=== PATIENT | male | born 1960 | race Hispanic/Latino ===

== ENCOUNTER 2016-08-22 11:53 | Emergency (ER) | payer MEDICAID ==
[2016-08-22 13:08] VITALS: BMI 44.7
[2016-08-22 13:13] VITALS: TEMP 98.1
[2016-08-22 15:17] VITALS: BP 118/77; PULSE 72; RESP 18; O2SAT 98
--- NOTE | 2016-08-22 15:54 | ED PDOC ---
Arrival/HPI - General Chief Complaint: Finger,Hand,&Wrist Time Seen by Provider: 08/22/16 13:42 Historian: Patient - History of Present Illness Narrative History of Present Illness (Text): 08/22/16 13:42 A 55 year old male who presents to the emergency department complaining of right hand pain for the past 3 days. Patient states he is not sure if he injured the hand. Patient is right handed. He denies any left hand pain, or any other complaints at this time. PMD: Dr. Wood Time/Duration: Other (3 days) Symptom Onset: Sudden Symptom Course: Unchanged Quality: Other Activities at Onset: Rest Context: Home Past Medical History - Provider Review Nursing Documentation Reviewed: Yes - Cardiac Hx Hypertension: Yes - Endocrine/Metabolic Hx Diabetes Mellitus Type 2: Yes (July 2016 dx) - Gastrointestinal Hx Gastroesophageal Reflux: Yes - Psychiatric Hx Psychophysiologic Disorder: No Hx Substance Use: No - Surgical History Hx Joint Replacement: Yes (bilat knee replacement) Family/Social History - Physician Review Nursing Documentation Reviewed: Yes Family/Social History: No Known Family HX Smoking Status: Unknown If Ever Smoked Hx Alcohol Use: No Hx Substance Use: No Allergies/Home Meds Allergies/Adverse Reactions: Allergies No Known Allergies Allergy (Verified 08/22/16 13:08) Review of Systems - Physician Review All systems were reviewed & negative as marked: Yes - Review of Systems Constitutional: Normal Eyes: Normal ENT: Normal Respiratory: Normal Cardiovascular: Normal Gastrointestinal: Normal Genitourinary Male: Normal Musculoskeletal: Other (right hand pain) Skin: Normal Neurological: Normal Endocrine: Normal Hemo/Lymphatic: Normal Psychiatric: Normal Physical Exam Vital Signs Reviewed: Yes Vital Signs Temp Pulse Resp BP Pulse Ox 08/22/16 15:15 72 18 118/77 98 08/22/16 13:12 98.1 F 78 17 122/80 97 Temperature: Afebrile Blood Pressure: Normal Pulse: Regular Respiratory Rate: Normal Appearance: Positive for: Well-Appearing, Non-Toxic, Comfortable Pain Distress: None Mental Status: Positive for: Alert and Oriented X 3 - Systems Exam Head: Present: Atraumatic, Normocephalic Conjunctiva: Present: Normal Mouth: Present: Moist Mucous Membranes Neck: Present: Normal Range of Motion Upper Extremity: Present: Tenderness (point tenderness with palpation of the right hand proximal end of the third digit). No: Cyanosis, Edema Lower Extremity: Present: Normal Inspection Neurological: Present: GCS=15, CN II-XII Intact, Speech Normal Skin: Present: Warm, Dry, Normal Color. No: Rashes Psychiatric: Present: Alert, Oriented x 3, Normal Insight, Normal Concentration Medical Decision Making ED Course and Treatment: 08/22/16 13:42 Impression: A 55 year old male with right hand pain. Differential Diagnosis include but are not limited to: fracture vs. musculoskeletal Plan: -- Right hand X-ray -- Motrin -- Reassess and disposition Progress Notes: 08/22/16 14:40 Right hand x-ray shows no acute fracture. On re-evaluation, the patient feels better and is in no acute distress. I have discussed the results and plan with the patient, who expresses understanding. Patient in agreement with plan to discharged home. Patient is stable for discharge. Patient was instructed to follow up with physician/clinic in 1-2 days or return if symptoms worsen or new concerning symptoms arise. - RAD Interpretation Radiology Orders: 08/22/16 13:42 HAND RIGHT 3 VIEWS [RAD] Stat - Medication Orders Current Medication Orders: Discontinued Medications Ibuprofen (Motrin Tab) 600 mg PO STAT STA Stop: 08/22/16 13:47 Last Admin: 08/22/16 14:08 Dose: 600 MG MAR Pain/Vitals Document 08/22/16 14:08 [facility] (Rec: 08/22/16 14:08 [id number] Pain Reassessment Is This A Pain ReAssessment? No - Scribe Statement The provider has reviewed the documentation as recorded by the Jus Santizo Provider Scribe Attestation: All medical record entries made by the Scribe were at my direction and personally dictated by me. I have reviewed the chart and agree that the record accurately reflects my personal performance of the history, physical exam, medical decision making, and the department course for this patient. I have also personally directed, reviewed, and agree with the discharge instructions and disposition. Disposition/Present on Arrival - Present on Arrival Any Indicators Present on Arrival: No History of DVT/PE: No History of Uncontrolled Diabetes: No Urinary Catheter: No History of Decub. Ulcer: No History Surgical Site Infection Following: None - Disposition Have Diagnosis and Disposition been Completed?: Yes Diagnosis: Hand contusion Disposition: HOME/ ROUTINE Disposition Time: 14:40 Condition: GOOD Discharge Instructions (ExitCare): Hand Sprain (ED) Additional Instructions: Thank you for letting us take care of you today. Your provider was Dr. Kenyon. You were treated for hand contusion. The emergency medical care you received today was directed at your acute symptoms. If you were prescribed any medication, please fill it and take as directed. It may take several days for your symptoms to resolve. Return to the Emergency Department if your symptoms worsen, do not improve, or if you have any other problems. Please contact your doctor or call one of the physicians/clinics you have been referred to that are listed on the Patient Visit Information form that is included in your discharge packet. Bring any paperwork you were given at discharge with you along with any medications you are taking to your follow up visit. Our treatment cannot replace ongoing medical care by a primary care provider (PCP) outside of the emergency department. Thank you for allowing the [facility] team to be part of your care today. Follow up with your doctor in 2-3 days for re-evaluation. Prescriptions: Ibuprofen [Motrin] 600 mg PO Q6 PRN #20 tab PRN Reason: Pain, Moderate (4-7) Referrals: Jorge Wood MD [Primary Care Provider] - Follow up with primary
--- NOTE | 2016-08-22 16:00 | RAD ---
PROCEDURE: Right Hand Radiographs. HISTORY: r/o fx (3rd digit) COMPARISON: None. FINDINGS: BONES: Normal. No fracture. JOINTS: Normal. No osteoarthritic changes. SOFT TISSUES: Normal. OTHER FINDINGS: None. IMPRESSION: Normal right hand radiographs.
== END 2016-08-22 15:16 | disposition home or self-care (01) ==
LOC: ED 11:53
DX: S60.221A Contusion of right hand, initial encounter (principal); X58.XXXA Exposure to other specified factors, initial encounter; I10 Essential (primary) hypertension; E11.9 Type 2 diabetes mellitus without complications

== ENCOUNTER 2017-12-27 14:25 | Emergency (ER) | payer MEDICAID, OTHER ==
[2017-12-27 14:45] VITALS: BMI 39.1
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
[2017-12-27 16:47] VITALS: RESP 18; TEMP 98.2
[2017-12-27 17:06] VITALS: BP 149/73
[2017-12-27 17:08] VITALS: PULSE 71; O2SAT 97
== END 2017-12-27 16:00 | disposition home or self-care (01) ==
LOC: ED 14:25
DX: R51 Headache (principal); M79.671 Pain in right foot; V43.52XA Car driver injured in collision with other type car in traffic accident, initial encounter; I10 Essential (primary) hypertension; E11.9 Type 2 diabetes mellitus without complications

== ENCOUNTER 2018-01-07 11:22 | Inpatient (IN) | payer MEDICARE, OTHER ==
[2018-01-07 11:23] VITALS: BMI 39.1
[2018-01-07] MEDS ORDERED: Albuterol-Ipratrop 3 mg / 0.5 (3 ml) UD IH STA (11:32)
--- NOTE | 2018-01-07 11:35 | ED PDOC ---
Arrival/HPI - Critical Care Critical Care Minutes: 30 minutes <Zheng Britt - Last Filed: 01/07/18 13:01> - General Historian: Patient EM Caveat: Respiratory Distress - Critical Care Critical Care Minutes: 30 minutes - History of Present Illness Time/Duration: Other (approx 12 hours) Symptom Onset: Gradual Symptom Course: Worsening Quality: Tightness <Declan Dash - Last Filed: 01/07/18 13:20> - General Chief Complaint: Respiratory Distress Time Seen by Provider: 01/07/18 11:24 - History of Present Illness Narrative History of Present Illness (Text): 01/07/18 11:55 Patient is a 57 yo male with PMH of hypertension, sleep apnea and COPD presenting by ACLS in acute respiratory distress. Patient sitting up, using accessory muscles to breath with oxygen on. He is talking in short broken sentences upon arrival. Patient re-interviewed after some treatments. 01/07/18 12:30 Patient is now able to speak and feels he is breathing much better. He states his breathing started to worsen last night. While he was showering this morning , he started to get very anxious and nervous because he felt his breathing worsening. His chest felt very tight and he was not able to get air in or out. He attempted using an albuterol inhaler with no relief. His got nervous and decided to call 911. He has no other complaints at this time. Denies fevers , chills, nausea, vomiting, diarrhea, constipation, chest pain, palpitations, abdominal pain, numbness or tingling. He is still an active smoker - smoking 1 and a half packs per day. Denies alcohol and illicit drug use. (Declan Dash) Past Medical History - Provider Review Nursing Documentation Reviewed: Yes - Infectious Disease Hx of Infectious Diseases: None - Cardiac Hx Hypertension: Yes - Endocrine/Metabolic Hx Diabetes Mellitus Type 2: Yes (July 2016 dx) - Gastrointestinal Hx Gastroesophageal Reflux: Yes - Psychiatric Hx Psychophysiologic Disorder: No Hx Substance Use: No - Surgical History Hx Joint Replacement: Yes (bilat knee replacement) - Anesthesia Hx Anesthesia Reactions: No <Declan Dash - Last Filed: 01/07/18 13:20> Family/Social History - Physician Review Nursing Documentation Reviewed: Yes Family/Social History: Unknown Family HX Smoking Status: Heavy Smoker > 10 Cigarettes Daily Hx Alcohol Use: No Hx Substance Use: No <Declan Dash - Last Filed: 01/07/18 13:20> Allergies/Home Meds <Zheng Britt - Last Filed: 01/07/18 13:01> <Declan Dash - Last Filed: 01/07/18 13:20> Allergies/Adverse Reactions: Allergies No Known Allergies Allergy (Verified 08/22/16 13:08) Review of Systems - Physician Review All systems were reviewed & negative as marked: Yes - Review of Systems Constitutional: Normal. absent: Fatigue, Fevers Eyes: Normal. absent: Vision Changes ENT: Normal Respiratory: SOB, Wheezing. absent: Cough, Sputum Cardiovascular: Normal. absent: Chest Pain, Palpitations, Calf Pain Gastrointestinal: Normal. absent: Abdominal Pain, Constipation, Diarrhea, Nausea, Vomiting, Appetite Changes Musculoskeletal: Normal Skin: Normal Neurological: Normal Endocrine: Diaphoresis Hemo/Lymphatic: Normal Psychiatric: Normal <Declan Dash - Last Filed: 01/07/18 13:20> Physical Exam Vital Signs Reviewed: Yes Temperature: Afebrile Blood Pressure: Hypertensive Pulse: Tachycardic Respiratory Rate: Other (respiratory distress - placed on bipap) Appearance: Positive for: Ill-Appearing Pain Distress: None Mental Status: Positive for: Alert and Oriented X 3 - Systems Exam Head: Present: Atraumatic, Normocephalic Extroacular Muscles: Present: EOMI Conjunctiva: Present: Normal Neck: Present: Normal Range of Motion Respiratory/Chest: Present: Respiratory Distress, Accessory Muscle Use, Wheezes , Retracting, Rhonchi, Tachypneic. No: Clear to Auscultation, Good Air Exchange , Decreased Breath Sounds, Rales, Tender to Palpation Cardiovascular: Present: Regular Rate and Rhythm, Normal S1, S2. No: Murmurs Abdomen: No: Tenderness, Distention, Peritoneal Signs, Rebound, Guarding Upper Extremity: Present: Normal Inspection. No: Cyanosis, Edema Lower Extremity: Present: Edema (2+), NORMAL PULSES. No: CALF TENDERNESS Neurological: Present: GCS=15, CN II-XII Intact, Speech Normal Skin: Present: Warm, Dry, Normal Color. No: Rashes Psychiatric: Present: Alert, Oriented x 3, Normal Insight, Normal Concentration <Declan Dash - Last Filed: 01/07/18 13:20> Vital Signs Temp Pulse Resp BP Pulse Ox 01/07/18 11:30 98.4 F 105 H 21 182/81 H 97 Medical Decision Making <BalwinderZheng - Last Filed: 01/07/18 13:01> Re-evaluation Time: 12:37 Reassessment Condition: Re-examined, Improving,but remains with symptoms - Lab Interpretations I have reviewed the lab results: Yes - RAD Interpretation Curing Machine Operator: ED Physician - EKG Interpretation Interpreted by ED Physician: Yes Type: 12 lead EKG Comparison: No previous EKG avail. <Declan Dash - Last Filed: 01/07/18 13:20> ED Course and Treatment: 01/07/18 13:00 Seen and examined with the resident. Our history and physical exam reveals a morbidly obese gentleman with severe respiratory distress using accessory muscles with retractions tachypneic and tachycardic and wheezing throughout. BiPAP was begun on arrival. He is markedly improved after BiPAP and multiple breathing treatments. (Zheng Britt) Patient is in respiratory distress. Talking in short, broken sentences. * labs * cxr * ekg * solumedrol * duonebs * BIPAP 01/07/18 12:38 Patient is greatly improved, talking in full sentences. Currently still on BiPAP. Still wheezing on exam. CXR is normal. Labs unremarkable. Patient agreeable to hospitalization. He is a patient of Dr. Luu. Call placed to Dr. Luu, awaiting return call. 01/07/18 13:[address] Luu. He is requesting patient to be placed on his service for full admission on telemetry. (Declan Dash) - Lab Interpretations Lab Results: 01/07/18 11:38 01/07/18 11:38 Lab Results 01/07/18 11:38: Sodium 143, Chloride 102, Potassium 4.6, Carbon Dioxide 28, Anion Gap 17, BUN 14, Creatinine 0.7 L, Est GFR ( Amer) > 60, Est GFR ( Non-Af Amer) > 60, Random Glucose 171 H, Calcium 9.7, Phosphorus 4.6 H, Magnesium 1.7, Total Bilirubin 0.4, AST 81 H, ALT 129 H, Alkaline Phosphatase 111, Troponin I 0.02, Total Protein 8.1, Albumin 4.6, Globulin 3.5, Albumin/ Globulin Ratio 1.3 01/07/18 11:38: WBC 9.2, RBC 5.05, Hgb 15.7, Hct 45.6, MCV 90.3, MCH 31.1, MCHC 34.4, RDW 13.4, Plt Count 210, MPV 10.3, Gran % 65.9, Lymph % (Auto) 19.2 L, [place] % (Auto) 5.5, Eos % (Auto) 8.9 H, Baso % (Auto) 0.5, Gran # 6.08, Lymph # ( Auto) 1.8, [place] # (Auto) 0.5, Eos # (Auto) 0.8 H, Baso # (Auto) 0.05 01/07/18 11:35: pCO2 55 H, pO2 159.0 H, HCO3 28.3 H, ABG pH 7.32 L, ABG Total CO2 30.0 H, ABG O2 Saturation 98.3 H, ABG Base Excess 1.1, ABG Potassium 3.8, Sodium 141.0, Chloride 105.0, Glucose 162 H, Lactate 1.0, FiO2 40.0, Inspiratory BiPAP 12, Arterial Blood Potassium 3.8 - RAD Interpretation Narrative RAD Interpretations (Text): 01/07/18 13:19 CXR - no acute disease (Declan Dash) Radiology Orders: 01/07/18 11:31 CHEST PORTABLE [RAD] Stat - EKG Interpretation EKG Interpretation (Text): 01/07/18 12:41 Sinus Tachycardia @116bpm, LBBB, No acute ST segment elevations - no previous ekg for comparison. (Declan Dash) - Medication Orders Current Medication Orders: Discontinued Medications Albuterol Sulfate (Albuterol 0.083% Inhal Tamar (2.5 Mg/3 Ml) Ud) 2.5 mg INH STAT STA Stop: 01/07/18 12:30 Last Admin: 01/07/18 13:03 Dose: 2.5 mg Albuterol Sulfate (Albuterol 0.083% Inhal Tamar (2.5 Mg/3 Ml) Ud) 2.5 mg INH STAT STA Stop: 01/07/18 12:30 Last Admin: 01/07/18 13:03 Dose: 2.5 mg Albuterol Sulfate (Albuterol 0.083% Inhal Tamar (2.5 Mg/3 Ml) Ud) 2.5 mg INH STAT STA Stop: 01/07/18 12:30 Last Admin: 01/07/18 13:03 Dose: 2.5 mg Albuterol/Ipratropium (Duoneb 3 Mg/0.5 Mg (3 Ml) Ud) 3 ml IH STAT STA Stop: 01/07/18 11:33 Last Admin: 01/07/18 11:42 Dose: 3 ml Magnesium 2 gm/50 ml NS (Magnesium Sulfate 2 Gm/50 Ml Ns) 2 gm in 50 mls @ 50 mls/hr IVPB ONCE ONE Stop: 01/07/18 12:37 Last Admin: 01/07/18 12:12 Dose: 50 mls/hr eMAR Start Stop Document 01/07/18 12:12 EWO (Rec: 01/07/18 12:12 [id number] [id number]) Intravenous Solution Start Date 01/07/18 Start Time 12:12 End Date 01/07/18 End time 13:12 Total Infusion Time 60 Methylprednisolone (Solu-Medrol) 200 mg IVP STAT STA Stop: 01/07/18 11:33 Last Admin: 01/07/18 11:41 Dose: 200 mg IVP Administration Document 01/07/18 11:41 EWO (Rec: 01/07/18 11:41 [email or web address] [id number]) Charges for Administration # of IVP Administrations 1 Disposition/Present on Arrival <Zheng Britt - Last Filed: 01/07/18 13:01> - Present on Arrival Any Indicators Present on Arrival: No History of DVT/PE: No History of Uncontrolled Diabetes: No Urinary Catheter: No History of Decub. Ulcer: No History Surgical Site Infection Following: None - Disposition Have Diagnosis and Disposition been Completed?: Yes Disposition Time: 12:37 Patient Plan: Telemetry <Declan Dash - Last Filed: 01/07/18 13:20> - Disposition Diagnosis: COPD exacerbation Disposition: HOSPITALIZED Patient Problems: Current Active Problems Problem Status Onset COPD exacerbation Acute Condition: GUARDED Forms: [employer] ([place] Islander)
[2018-01-07] MEDS ORDERED: Magnesium 2 gm/50 ml NS 2 GM/50 ML BAG IVPB ONE (11:38)
[2018-01-07 11:45] LABS: ARTERIAL BLOOD GAS HCO3 28.3 mmol/L (21-28); ARTERIAL BLOOD GAS O2 SAT 98.3 % (95-98); ARTERIAL BLOOD GAS PCO2 55 mm/Hg (35-45); ARTERIAL BLOOD GAS PH 7.32 (7.35-7.45)
[2018-01-07 12:12] LABS: ALB/GLOB RATIO 1.3 (1.1-1.8); ALBUMIN 4.6 g/dL (3.0-4.8); ALT/SGPT 129 U/L (7-56); AST/SGOT 81 U/L (17-59); BLOOD UREA NITROGEN 14 mg/dL (7-21); CALCIUM 9.7 mg/dL (8.4-10.5); GFR AFRICAN-AMERICAN > 60; GFR NON-AFRICAN AMERICAN > 60
[2018-01-07 12:15] LABS: BASO # 0.05 K/mm3 (0.0-2.0); BASO % 0.5 % (0.0-3.0); EOS # 0.8 (0.0-0.7); EOS % 8.9 % (1.5-5.0); GRAN # 6.08 (1.4-6.5); GRAN % 65.9 % (50.0-68.0); HEMOGLOBIN 15.7 g/dL (14.0-18.0); LYMPH # 1.8 (1.2-3.4); LYMPH % 19.2 % (22.0-35.0); MEAN CELL VOLUME 90.3 fl (80.0-105.0); MEAN CORPUSCULAR HEMOGLOBIN 31.1 pg (25.0-35.0); MEAN CORPUSCULAR HGB CONC 34.4 g/dl (31.0-37.0); MEAN PLATELET VOLUME 10.3 fl (7.0-11.0); MONO # 0.5 (0.1-0.6); MONO % 5.5 % (1.0-6.0); RBC 5.05 10^6/uL (3.5-6.1); RED CELL DISTRIBUTION WIDTH 13.4 % (11.5-14.5); WHITE BLOOD COUNT 9.2 10^3/ul (4.5-11.0)
--- NOTE | 2018-01-07 12:21 | RAD ---
Date of service: 01/07/2018 HISTORY: sob COMPARISON: No prior. FINDINGS: LUNGS: No active pulmonary disease. PLEURA: No significant pleural effusion identified, no pneumothorax apparent. CARDIOVASCULAR: Normal. OSSEOUS STRUCTURES: No significant abnormalities. VISUALIZED UPPER ABDOMEN: Normal. OTHER FINDINGS: None. IMPRESSION: No active disease.
[2018-01-07 12:23] LABS: TROPONIN I 0.02 ng/mL
[2018-01-07] MEDS ORDERED: Albuterol 0.083% Inhal Sol (2.5 mg/3 mL) UD INH STA ×3 (12:29)
[2018-01-07] MEDS ORDERED: Albuterol-Ipratrop 3 mg / 0.5 (3 ml) UD IH PRN (15:39)
[2018-01-07] MEDS: Albuterol-Ipratrop 3 mg / 0.5 (3 ml) UD IH SCH ×3 (17:00→20:40)
[2018-01-07] MEDS: Insulin Reg-MEDIUM-Coverage SC SCH ×2 (18:05→21:39)
[2018-01-07 18:07] VITALS: RESP 20
[2018-01-08 06:37] VITALS: O2SAT 100
--- NOTE | 2018-01-08 06:47 | CARD ---
APPROVED REPORT Date of service: 01/07/2018 EKG Measurement Heart [id number] <Conclusion> Sinus tachycardia with occasional premature ventricular complexes and fusion complexes L left bundle branch block ST & T wave abnormality, consider lateral ischemia Abnormal ECG
[2018-01-08] MEDS: Albuterol-Ipratrop 3 mg / 0.5 (3 ml) UD IH SCH ×2 (08:02→14:05)
[2018-01-08] MEDS: Insulin Reg-MEDIUM-Coverage SC SCH ×2 (08:49→12:17)
[2018-01-08] MEDS ORDERED: MethylPREDNISolone 40 mg Vial IVP SCH (10:00)
--- NOTE | 2018-01-08 11:45 | CP.PCM.HP ---
<MilTeodora - Last Filed: 01/09/18 06:42> History of Present Illness - History of Present Illness History of Present Illness: PGY-[address] Luu Mr Benoit, 57 M, active smoker 1PPD, with PMH of hypertension, sleep apnea, DM2 and COPD came to the ED c/o SOB. He recently moved upstairs with which requires him to walk a flight of stairs several times a day. Yesterday, he developed sudden SOB while taking the stairs and had to stop several times to get to home. His chest felt very tight and he was not able to get air in or out. He attempted using an albuterol inhaler with no relief. Denies recent sickeness, cough, edema, CP,N/V/D/c, edema. f/c In the ED, Pt presented with acute respiratory distress. (+) using accessory muscles to breath with oxygen on. He is talking in short broken sentences upon arrival. HR 105, BP 180s, 99 BiPAP EKG showed sinus tachycardia with premature ventricular complex and fusions, LBBB, ST/T likely lateral ischemia CXR: no active disease He received duoneb, mg, solumedrol, bipap PMH HTN Sleep apnea COPD active smoker DM2 PSH bilat knee replacement SH 1.5ppd x many years. denies drink. (+) drug use in the past. geriatric personal care aide of [employer] Med review Present on Admission - Present on Admission Any Indicators Present on Admission: No Past Patient History - Infectious Disease Hx of Infectious Diseases: None - Past Social History Smoking Status: Current Some Days Smoker - CARDIAC Hx Cardiac Disorders: Yes Hx Hypercholesterolemia: Yes Hx Hypertension: Yes - PULMONARY Hx Respiratory Disorders: Yes - NEUROLOGICAL Hx Neurological Disorder: No - HEENT Hx HEENT Problems: No - RENAL Hx Chronic Kidney Disease: No - ENDOCRINE/METABOLIC Hx Endocrine Disorders: Yes Hx Diabetes Mellitus Type 2: Yes (July 2016 dx) - HEMATOLOGICAL/ONCOLOGICAL Hx Blood Disorders: No - INTEGUMENTARY Hx Dermatological Problems: No - MUSCULOSKELETAL/RHEUMATOLOGICAL Hx Musculoskeletal Disorders: No Hx Falls: No - GASTROINTESTINAL Hx Gastrointestinal Disorders: Yes Hx Gastroesophageal Reflux: Yes - GENITOURINARY/GYNECOLOGICAL Hx Genitourinary Disorders: No - PSYCHIATRIC Hx Psychophysiologic Disorder: Yes (smoking) Hx Anxiety: Yes - SURGICAL HISTORY Hx Surgeries: Yes Hx Joint Replacement: Yes (bilat knee replacement) - ANESTHESIA Hx Anesthesia Reactions: No Meds Home Medications: Home Medication List Medication Instructions Recorded Confirmed Type Azithromycin [Z-Elmer] See Taper PO DAILY #6 tab 01/08/18 Rx Prednisone 5 mg PO DAILY #1 tab.ds.pk 01/08/18 Rx Allergies/Adverse Reactions: Allergies Allergy/AdvReac Type Severity Reaction Status Date / Time No Known Allergies Allergy Verified 01/07/18 14:19 Physical Exam - Constitutional Appears: No Acute Distress - Head Exam Head Exam: ATRAUMATIC, NORMAL INSPECTION, NORMOCEPHALIC - Eye Exam Eye Exam: EOMI, Normal appearance, PERRL Pupil Exam: NORMAL ACCOMODATION - ENT Exam ENT Exam: Mucous Membranes Moist - Neck Exam Additional comments: supple - Respiratory Exam Respiratory Exam: Clear to Auscultation Bilateral, Rhonchi, Wheezes. absent: Rales - Cardiovascular Exam Cardiovascular Exam: REGULAR RHYTHM, +S1, +S2. absent: Tachycardia - GI/Abdominal Exam GI & Abdominal Exam: Distended, Normal Bowel Sounds, Soft. absent: Guarding, Rigid - Extremities Exam Extremities exam: Positive for: pedal edema, pedal pulses present. Negative for : calf tenderness - Neurological Exam Neurological exam: Alert, Oriented x3 - Psychiatric Exam Psychiatric exam: Normal Affect, Normal Mood - Skin Skin Exam: Dry, Warm Results - Vital Signs Recent Vital Signs: Last Vital Signs Temp 98.5 F 01/08/18 06:00 Pulse 71 01/08/18 06:00 Resp 20 01/08/18 06:39 BP 150/93 H 01/08/18 06:00 Pulse Ox 100 01/08/18 06:39 - Labs Result Diagrams: 01/07/18 11:38 01/07/18 11:38 Labs: Laboratory Results - last 24 hr 01/07/18 01/07/18 01/08/18 16:10 21:28 07:06 POC Glucose (mg/dL) 181 H 196 H 135 H Assessment & Plan - Assessment and Plan (Free Text) Plan: Pt has exacerbation of COPD, in the setting of sleep apnea and active smoking. He was treated with duoneb, solumedrol, and antibiotics. He is stable and will discharge home with steroid taper and z-elmer. He should follow up with Dr Swanson outpatient for CT chest screening for lung cancer and pulmonary function test. He was advised of losing weight. He was discharged home. <Ulises Luu S - Last Filed: 01/09/18 22:13> Results - Vital Signs Recent Vital Signs: Last Vital Signs Temp 97.9 F 01/08/18 11:45 Pulse 83 01/08/18 11:45 Resp 20 01/08/18 11:45 BP 161/88 H 01/08/18 11:45 Pulse Ox 100 01/08/18 06:39 - Labs Result Diagrams: 01/07/18 11:38 01/07/18 11:38 Labs: Laboratory Results - last 24 hr 01/08/18 11:08 POC Glucose (mg/dL) 159 H Assessment & Plan - Assessment and Plan (Free Text) Plan: Pt seen and examined. I have reviewed the note of the medical csr and agree with it. I have discussed the assessment and plan with the resident. I have reviewed the patient's labs and medications. Pt with COPD improved. Pt discharge home. F/U in office 4-5 days.
[2018-01-08 11:46] VITALS: BP 161/88; PULSE 83; TEMP 97.9
--- NOTE | 2018-01-08 17:50 | CON ---
Copied To: Gracy Swanson MD Attending MD: Gracy Swanson MD DATE: 01/08/2018 PULMONARY CONSULT REFERRING PHYSICIAN: Ulises Luu MD. REASON FOR CONSULT: Chronic obstructive lung disease, may have a sleep apnea syndrome. HISTORY OF PRESENT ILLNESS: This is a 57-year-old male with known history of chronic obstructive lung disease, presented in the emergency room with cough and shortness of breath in the last few days. Denied any hemoptysis. No hematemesis. No hematuria. No diarrhea. No leg pain or leg swelling. Admits to be active smoker. Admits to have loud snoring at nighttime, daytime sleepy and tired. PAST MEDICAL HISTORY: Chronic obstructive lung disease. History of knee surgeries in the past. Suspected sleep apnea syndrome. SOCIAL HISTORY: Active smoker. Denies any alcohol use. In the past, has a history of illicit drug use. ALLERGIES: NONE KNOWN. FAMILY HISTORY: No significant cardiopulmonary disease reported. MEDICATIONS: The patient is on glimepiride 1 mg twice a day, lorazepam 1 mg twice a day, Cozaar 50 mg daily, DuoNeb every 2 hours p.r.n., DuoNeb every 8 hours, insulin coverage, Lipitor 20 mg daily, Solu-Medrol is at 40 mg every 12 hours. REVIEW OF SYSTEMS: No headache. No rhinitis. Has cough, shortness of breath. Admits to be snoring, daytime sleepy and tired. No abdominal pain. No dysuria. No leg pain or leg swelling. PHYSICAL EXAMINATION: GENERAL: No acute distress. VITAL SIGNS: Temperature is 98, heart rate is 83, respiratory rate is 20, blood pressure 161/88, pulse ox 100% on BiPAP yesterday. HEENT: Moist mucous membrane. Crowded airway. Mallampati score is 4. NECK: Supple. No JVD. LUNGS: Have poor airflow. Prolonged expiratory phase. HEART: S1 and S2. ABDOMEN: Soft, nontender, no organomegaly. EXTREMITIES: No edema. NEUROLOGICAL: Awake and alert. Follows simple commands. LABORATORY DATA: Shows hemoglobin 15.7, hematocrit 45.6, WBC 9.2, platelet is 210. Blood gases show pH 7.32, pCO2 of 55, O2 of 159 on CPAP with supplemental oxygen. Sodium 143, potassium 4.6, chloride 102, bicarbonate 28, BUN 14, creatinine 0.7, glucose 171, calcium 9.7, phosphorus 4.6, magnesium 1.7, AST 81, ALT 129, alk phos is 111, albumin is 4.6. Chest x-ray shows no infiltrate or effusion. IMPRESSION AND PLAN: Exacerbation of chronic obstructive lung disease, may have component of sleep apnea syndrome, hyperglycemia, hyperlipidemia, hypertension. I had long discussion with the patient, urged him to stop smoking. Will need screening CT of the chest as outpatient for cancers screening. We will do pulmonary function test as outpatient. Urged him to lose weight. Thank you, we will follow up with you as outpatient. Gracy Swanson MD
--- NOTE | 2018-01-09 13:53 | DS ---
Copied To: Ulises Luu MD Attending MD: Ulises Luu MD HISTORY OF PRESENT ILLNESS: This is a 57-year-old male who had come into the hospital with acute shortness of breath. The patient had a COPD exacerbation. He was started on IV steroids, given nebulizer treatment, got improvement in his symptoms. 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 His wheezing was mild. We will discharge on prednisone and an albuterol pump. He is going to see me in the next few days in the office. CONDITION: Stable. ACTIVITIES: Increased as tolerated. Also note, I have reviewed the resident's note. I went over the patient and examined the patient myself. I reviewed the old records. I agree with the note of the resident, Dr. Jaeger. Ulises Luu MD MTDMolly
== END 2018-01-08 15:15 | disposition home or self-care (01) | DRG 192 ==
LOC: ED 11:22 → ERH 13:15 → 2RSO 15:04
PROVIDERS: ADMIT Internal Medicine Nephrology; ATTEND Internal Medicine Nephrology
DX: J44.1 Chronic obstructive pulmonary disease with (acute) exacerbation (principal); E11.9 Type 2 diabetes mellitus without complications; E78.00 Pure hypercholesterolemia, unspecified; G47.30 Sleep apnea, unspecified; I10 Essential (primary) hypertension; I44.7 Left bundle-branch block, unspecified; K21.9 Gastro-esophageal reflux disease without esophagitis; Z96.653 Presence of artificial knee joint, bilateral; F17.210 Nicotine dependence, cigarettes, uncomplicated